=== PATIENT | male | born 1980 | race Caucasian/White ===

== ENCOUNTER 2017-06-01 13:38 | Emergency (ER) | payer MEDICAID, OTHER ==
[~2017-06-01] VITALS: Ht 177.8 cm; Wt 95.1 kg
[2017-06-01 13:44] VITALS: Ht 177.8 cm; Wt 95.1 kg
[2017-06-01] MEDS ORDERED: HYDROCODONE/APAP (5/325) TAB PO ONE (15:00)
[2017-06-01] MEDS ORDERED: ONDANSETRON (ODT) 4 MG TAB ODT STA (15:25)
--- NOTE | 2017-06-01 16:28 | RADRPT ---
PROCEDURE: CT cervical spine without contrast CLINICAL INDICATION: Trauma. Neck pain. TECHNIQUE: CT scan of the cervical spine [facility] No [facility] contrast was administered. Coronal and sagittal reformatted images were obtained from th e axial source images. Images were reviewed on a high-resolution PACS workstation. One or more the f ollowing does reduction techniques were utilized: Automated exposure control, adjustment of the mA/ or kV according to patient's size, or use of iterative reconstruction technique. Exam CTDI = 22.29 m Gy and the DLP = 563.96 mGy-cm. DICOM images are available. COMPARISON: None available. FINDINGS: There is straightening of the alignment of the cervical spine with loss of the normal cervical lordo sis. Alignment remains intact. No acute fracture or dislocation is seen. The vertebral body heigh ts and disk spaces are preserved. Uncovertebral osteophytes and facet arthropathy result in multilev el foraminal stenosis: at C2-C3 mild on the right, at C3-C4 mild to moderate on the left, at C4-C5 m ild on the right, at C5-C6 moderate on the right and mild on the left, at C6-C7 mild bilaterally. Po sterior disc bulges contribute to mild spinal canal narrowing at C3-C4 through C6-C7. No mass, zuri catalino, or other soft tissue abnormality is seen. There are multilevel moderate degenerative changes of the cervical spine, manifested by osteophytosi s and disc height narrowing, most prominent at C5-C6 and C6-C7. IMPRESSION: 1. Straightening of normal cervical lordosis. 2. No acute fracture or traumatic subluxation. 3. Posterior disc bulges contribute to mild spinal canal narrowing at C3-C4 through C6-C7. 4. Multilevel mild to moderate foraminal stenosis as outlined in details in findings. RPTAT: HFN .Stefan Guevara MD, MD Date Time Electronically viewed and signed by .Stefan Guevara MD, MD on 06/01/2017 16:28 .N/
--- NOTE | 2017-06-01 16:39 | RADRPT ---
PROCEDURE: CT Lumbar Spine. CLINICAL INDICATION: Trauma. Low back pain TECHNIQUE: The study was performed on a multidetector CT scanner. Volumetric data was obtained th rough the lumbar spine and reformatted in the axial plane. Sagittal and coronal reformations were cr eated from the raw axial data. One or more the following does reduction techniques were utilized: Au tomated exposure control, adjustment of the mA/ or kV according to patient's size, or use of iterati ve reconstruction technique. The images were reviewed on a PACS workstation. CTDI 21.22 mGy. DLP 674.04 mGy-cm. DICOM images are available. COMPARISON: No prior studies are available for comparison. FINDINGS: There is maintenance of normal lumbar lordosis. No lumbar spine subluxation is noted. The vertebral body heights are preserved. There is no significant paravertebral soft tissues swelling or mass. T12-L1: The disk is normal in height. No significant disk bulge or protrusion is seen. The central canal and neural foramina appear adequately patent. L1-L2: The disk is normal in height. No significant disk bulge or protrusion is seen. The central c anal and neural foramina appear adequately patent. L2-L3: The disk is normal in height. Mild diffuse disc bulge is seen. The central canal and neural foramina appear adequately patent. L3-L4: The disk is normal in height. Mild diffuse disc bulge is seen. Mild bilateral facet arthropa thy is noted. Mild bilateral foraminal narrowing is noted. The central spinal canal appears adequate ly patent. L4-L5: The disk is normal in height. Mild anterior osteophytosis is noted. 4 mm diffuse disc bulge is seen which contributes to mild spinal canal narrowing. The AP diameter of the spinal canal measur es 8 mm. Mild bilateral facet arthropathy is noted. Mild bilateral foraminal narrowing is noted. Mod erate bilateral foraminal and lateral recess narrowing is noted. L5-S1: The disk is normal in height. 4 mm diffuse disc bulge is seen. Mild bilateral facet arthropa thy is noted. Mild bilateral foraminal narrowing is noted. Moderate right and moderate to severe lef t foraminal and lateral recess stenosis is noted with probable impingement on exiting left L5 nerve root. The central spinal canal appears adequately patent. IMPRESSION: 1. No acute lumbar spine fracture or subluxation. 2. Posterior disc bulge contribute to mild spinal canal narrowing at L4-5. 3. Multilevel foraminal and lateral recess stenosis most prominent at left L5-S1 with probable impi ngement on exiting left L5 nerve root as outlined in details in findings. RPTAT: HFN .Stefan Guevara MD, Date Time Electronically viewed and signed by .Stefan Guevara MD, on 06/01/2017 16:39 .N/
--- NOTE | 2017-06-01 16:40 | RADRPT ---
PROCEDURE: CT Brain without. CLINICAL INDICATION: Trauma, pain. TECHNIQUE: A CT of the brain was performed on multidetector high-resolution CT scanner utilizing a xial sections from the skull base through the vertex without contrast. The scan was reviewed in sof t tissue brain and high frequency resolution bone algorithm windows. Images were reviewed on a high -resolution PACS workstation. One or more the following does reduction techniques were utilized: Aut omated exposure control, adjustment of the mA/ or kV according to patient's size, or use of iterativ e reconstruction technique. The exam CTDI = 45.01 mGy and the DLP = 810.25 mGy-cm. DICOM images are available. COMPARISON: None available. FINDINGS: The ventricles and sulci are age-appropriate. There is no intracranial hemorrhage, mass effect or mi dline shift. No abnormal intra-axial or extra-axial fluid collections are seen. The henderson/white ke er differentiation is preserved. No acute skull abnormality is noted. The visualized paranasal sinus es are essentially clear. IMPRESSION: 1. No acute intracranial hemorrhage, transcortical infarction or mass effect. RPTAT: HFN .Stefan Guevara MD, MD Date Time Electronically viewed and signed by .Stefan Guevara MD, MD on 06/01/2017 16:40 .N/
[2017-06-01] MEDS ORDERED: NAPR-260 PO (16:46)
[2017-06-01] MEDS ORDERED: HYDR-906 PO (16:46)
[2017-06-01] MEDS ORDERED: CYCL-319 PO (16:46)
[2017-06-01 16:57] VITALS: BP 125/75; PULSE 70; RESP 18; TEMP 98.2
--- NOTE | 2017-06-01 17:24 | ERD ---
ER Documentation Chief Complaint Chief Complaint head injury on 04/22/17, headache and dizziness since, sent by pmd HPI 6-year-old male complaining of neck pain and dizziness. Patient states that one month ago he had a forklift come down on his head. Patient is complaining of neck pain with back pain. Denies vomiting. Denies loss of consciousness at the time of incident. Patient has not been seen prior to this incident and has happened 1 month ago. The visual changes. Has not taken medications for symptoms. ROS All systems reviewed and are negative except as per history of present illness. Medications Home Meds Active Scripts Cyclobenzaprine Hcl* (Cyclobenzaprine Hcl*) 10 Mg Tablet, 10 MG PO TID, #15 TAB Prov:CHELA CHANEY PA-C 06/01/17 Naproxen* (Naprosyn*) 500 Mg Tablet, 500 MG PO BID Y for PAIN AND/OR INFLAMMATION, #30 TAB Prov:CHELA CHANEY PA-C 06/01/17 Hydrocodone/Acetaminophen (Gilbert 5-325 Tablet) 1 Each Tablet, 1 TAB PO Q6H Y for PAIN, #7 TAB Prov:CHELA CHANEY PA-C 06/01/17 Allergies Allergies: Coded Allergies: No Known Allergy (Unverified , 06/01/17) PMhx/Soc History of Surgery: No Anesthesia Reaction: No Hx Neurological Disorder: No Hx Respiratory Disorders: No Hx Cardiac Disorders: No Hx Psychiatric Problems: No Hx Miscellaneous Medical Probl: No Hx Alcohol Use: No Hx Substance Use: No Hx Tobacco Use: Yes (1 pack a day) Smoking Status: Never smoker Physical Exam Vitals Vital Signs Date Time Temp Pulse Resp B/P Pulse Ox O2 Delivery O2 Flow Rate FiO2 06/01/17 16:57 98.2 70 18 125/75 96 Room Air 06/01/17 13:44 98.2 83 18 131/80 96 Physical Exam GENERAL: The patient is well-appearing, well-nourished, in no acute distress HEENT: No blood noted behind the TMs. No mastoid tenderness. Oropharynx clear with no blood noted. NECK: C-spine is soft and supple. There is no meningismus. There is no cervical lymphadenopathy. Tender to palpation to bilateral paraspinous muscles. CHEST: Clear to auscultation bilaterally. There are no rales, wheezes or rhonchi. HEART: Regular rate and rhythm. No murmurs, clicks, rubs or gallops. No S3 or S4.. BACK: No midline or flank tenderness. EXTREMITIES: Equal pulses bilaterally. There is no peripheral clubbing, cyanosis or edema. No focal swelling or erythema. Full range of motion. Grossly neurovascularly intact. NEUROLOGIC: Alert and oriented. Cranial nerves II through XII intact. Motor strength in all 4 extremities with 5 out of 5 strength. Sensation grossly intact. Normal speech and gait. Babinski negative. DTR 2+ throughout. SKIN: There is no apparent rash or petechiae. The skin is warm and dry. HEMATOLOGIC AND LYMPHATIC: There is no evidence of excessive bruising or lymphadenopathy. No gross cervical, axillary, or inguinal lymphadenopathy. Results 24 hrs Current Medications Medications (Trade) Dose Ordered Sig/Ruben Route PRN Reason Start Time Stop Time Status Last Admin Dose Admin Acetaminophen/ Hydrocodone Bitart (Gilbert (5/325)) 1 tab ONCE ONCE PO 06/01/17 15:00 06/01/17 15:01 DC Ondansetron HCl (Zofran Odt) 4 mg ONCE STAT ODT 06/01/17 15:25 06/01/17 15:26 DC Procedures/MDM DIAGNOSTIC IMAGING REPORT Patient: MILTON DE LOS SANTOS : 1980 Age: 36 Sex: M MR #: [id number] DOS: 06/01/17 0000 Ordering MD: PIOTR LIMA PA-C Location: [facility] Room/Bed: PROCEDURE: CT Brain without. CLINICAL INDICATION: Trauma, pain. TECHNIQUE: A CT of the brain was performed on multidetector high-resolution CT scanner utilizing axial sections from the skull base through the vertex without contrast. The scan was reviewed in soft tissue brain and high frequency resolution bone algorithm windows. Images were reviewed on a high- resolution PACS workstation. One or more the following does reduction techniques were utilized: Automated exposure control, adjustment of the mA/ or kV according to patient's size, or use of iterative reconstruction technique. The exam CTDI = 45.01 mGy and the DLP = 810.25 mGy-cm. DICOM images are available. COMPARISON: None available. FINDINGS: The ventricles and sulci are age-appropriate. There is no intracranial hemorrhage, mass effect or midline shift. No abnormal intra-axial or extra- axial fluid collections are seen. The henderson/white matter differentiation is preserved. No acute skull abnormality is noted. The visualized paranasal sinuses are essentially clear. IMPRESSION: 1. No acute intracranial hemorrhage, transcortical infarction or mass effect. DIAGNOSTIC IMAGING REPORT Patient: MILTON DE LOS SANTOS : 1980 Age: 36 Sex: M [id number] DOS: 06/01/17 0000 Ordering MD: PIOTR LIMA PA-C Location: E Room/Bed: PROCEDURE: CT cervical spine without contrast CLINICAL INDICATION: Trauma. Neck pain. TECHNIQUE: CT scan of the cervical spine was performed on a multidetector high -resolution CT scanner. No IV contrast was administered. Coronal and sagittal reformatted images were obtained from the axial source images. Images were reviewed on a high-resolution PACS workstation. One or more the following does reduction techniques were utilized: Automated exposure control, adjustment of the mA/ or kV according to patient's size, or use of iterative reconstruction technique. Exam CTDI = 22.29 mGy and the DLP = 563.96 mGy-cm. DICOM images are available. COMPARISON: None available. FINDINGS: There is straightening of the alignment of the cervical spine with loss of the normal cervical lordosis. Alignment remains intact. No acute fracture or dislocation is seen. The vertebral body heights and disk spaces are preserved. Uncovertebral osteophytes and facet arthropathy result in multilevel foraminal stenosis: at C2-C3 mild on the right, at C3-C4 mild to moderate on the left, at C4-C5 mild on the right, at C5-C6 moderate on the right and mild on the left, at C6-C7 mild bilaterally. Posterior disc bulges contribute to mild spinal canal narrowing at C3-C4 through C6-C7. No mass, hematoma, or other soft tissue abnormality is seen. There are multilevel moderate degenerative changes of the cervical spine, manifested by osteophytosis and disc height narrowing, most prominent at C5-C6 and C6-C7. IMPRESSION: 1. Straightening of normal cervical lordosis. 2. No acute fracture or traumatic subluxation. 3. Posterior disc bulges contribute to mild spinal canal narrowing at C3-C4 through C6-C7. 4. Multilevel mild to moderate foraminal stenosis as outlined in details in findings. DIAGNOSTIC IMAGING REPORT Patient: MILTON DE LOS SANTOS : 1980 Age: 36 Sex: M MR #: [id number] DOS: 06/01/17 0000 Ordering MD: PIOTR LIMA PA-C Location: [facility] Room/Bed: PROCEDURE: CT Lumbar Spine. CLINICAL INDICATION: Trauma. Low back pain TECHNIQUE: The study was performed on a multidetector CT scanner. Volumetric data was obtained through the lumbar spine and reformatted in the axial plane. Sagittal and coronal reformations were created from the raw axial data. One or more the following does reduction techniques were utilized: Automated exposure control, adjustment of the mA/ or kV according to patient's size, or use of iterative reconstruction technique. The images were reviewed on a PACS workstation. CTDI 21.22 mGy. DLP 674.04 mGy- cm. DICOM images are available. COMPARISON: No prior studies are available for comparison. FINDINGS: There is maintenance of normal lumbar lordosis. No lumbar spine subluxation is noted. The vertebral body heights are preserved. There is no significant paravertebral soft tissues swelling or mass. T12-L1: The disk is normal in height. No significant disk bulge or protrusion is seen. The central canal and neural foramina appear adequately patent. L1-L2: The disk is normal in height. No significant disk bulge or protrusion is seen. The central canal and neural foramina appear adequately patent. L2-L3: The disk is normal in height. Mild diffuse disc bulge is seen. The central canal and neural foramina appear adequately patent. L3-L4: The disk is normal in height. Mild diffuse disc bulge is seen. Mild bilateral facet arthropathy is noted. Mild bilateral foraminal narrowing is noted. The central spinal canal appears adequately patent. L4-L5: The disk is normal in height. Mild anterior osteophytosis is noted. 4 mm diffuse disc bulge is seen which contributes to mild spinal canal narrowing. The AP diameter of the spinal canal measures 8 mm. Mild bilateral facet arthropathy is noted. Mild bilateral foraminal narrowing is noted. Moderate bilateral foraminal and lateral recess narrowing is noted. L5-S1: The disk is normal in height. 4 mm diffuse disc bulge is seen. Mild bilateral facet arthropathy is noted. Mild bilateral foraminal narrowing is noted. Moderate right and moderate to severe left foraminal and lateral recess stenosis is noted with probable impingement on exiting left L5 nerve root. The central spinal canal appears adequately patent. IMPRESSION: 1. No acute lumbar spine fracture or subluxation. 2. Posterior disc bulge contribute to mild spinal canal narrowing at L4-5. 3. Multilevel foraminal and lateral recess stenosis most prominent at left L5- S1 with probable impingement on exiting left L5 nerve root as outlined in details in findings. MDM: 28-year-old male complaining of diffuse back pain after forklift fell on his head one month ago. Patient's x-ray does not show signs of acute fracture dislocations. Patient's neuro exam is within normal limits. I have low suspicion for neurodeficit. Patient's pain may be associated with disc bulging however I do not feel there is indication for admission at this time. Patient is discharged with pain medication and recommended to follow-up with primary care within 1-2 days for close evaluation. Patient is told symptoms change or worsen to return to the ER. All questions answered discharge. Departure Diagnosis: Primary Impression: Head and face pain Condition: Stable Patient Instructions: HEAD INJURY, No Wake-Up (Adult) Referrals: [facility] YOU HAVE RECEIVED A MEDICAL SCREENING EXAM AND THE RESULTS INDICATE THAT YOU DO NOT HAVE A CONDITION THAT REQUIRES URGENT TREATMENT IN THE EMERGENCY DEPARTMENT. FURTHER EVALUATION AND TREATMENT OF YOUR CONDITION CAN WAIT UNTIL YOU ARE SEEN IN YOUR DOCTORS OFFICE WITHIN THE NEXT 1-2 DAYS. IT IS YOUR RESPONSIBILITY TO MAKE AN APPOINTMENT FOR FOLOW-UP CARE. IF YOU HAVE A PRIMARY DOCTOR --you should call your primary doctor and schedule an appointment IF YOU DO NOT HAVE A PRIMARY DOCTOR YOU CAN CALL OUR PHYSICIAN REFERRAL HOTLINE AT IF YOU CAN NOT AFFORD TO SEE A PHYSICIAN YOU CAN CHOSE FROM THE FOLLOWING [facility] [address] [facility] [address] [facility] [address] [facility] [address] [facility] [address] [facility]. [facility] [address] Additional Instructions: FOLLOW UP WITH YOUR PRIMARY CARE PHYSICIAN TOMORROW.Return to this facility if you are not improving as expected. CHELA CHANEY PA-C Jun 01, 2017 17:24
== END 2017-06-01 16:58 | disposition home or self-care (01) ==
LOC: FTE 13:38
DX: R51 Headache (principal); Z87.891 Personal history of nicotine dependence
CPT/HCPCS: 70450; 72125; 72131